=== PATIENT | female | born 1945 | race Caucasian/White ===

== ENCOUNTER 2018-07-22 09:14 | Emergency (ER) | payer OTHER ==
[~2018-07-22] VITALS: Ht 154.9 cm; Wt 78.9 kg
--- NOTE | 2018-07-22 10:47 | ED GI/GU/ABDOMINAL COMPLAINT ---
History of Present Illness General Chief Complaint: General Adult Stated Complaint: SIB DR. HOOKS FOR GALLBLADDER ATTACK Source: patient Exam Limitations: no limitations Vital Signs & Intake/Output Vital Signs & Intake/Output Vital Signs Date Time Temp Pulse Resp B/P B/P Pulse O2 O2 Flow FiO2 Mean Ox Delivery Rate 07/22 1131 85 20 180/90 99 Room Air 07/22 0926 98.3 87 18 180/85 98 Room Air Allergies Coded Allergies: No Known Allergies (07/22/18) Triage Note: 72 YO FEMALE TO TRIAGE FOR EVAL OF ?GALLBLADDER ATTACK PER PT. STATES SHE WAS TOLD SHE HAS STONES IN HER GALLBLADDER AND STATES "I WAS UP ALL NIGHT WITH THE PAIN" STATES PAIN IS RUQ. +VOMTIING THIS AM. DENIES DIARRHEA. Triage Nurses Notes Reviewed? yes ? n Is pt currently ? No HPI: 72-year-old female with a prior history of hypertension, hypothyroidism, hyperlipidemia, hiatal hernia and gallstones found on CT last year presents to the emergency department with abdominal pain located in the lower abdomen localizing to the right upper quadrant starting yesterday evening. She noted that she was eating lightly with solid tomatoes cucumbers and was feeling fine until dinnertime when she had macaroni and cheese she started to have some slight nausea and right upper quadrant pain. She denies any fevers or chills. She actually checked her temperature which was normal. She noted ongoing nausea and vomiting throughout the evening. No hematemesis. She called Dr. Hooks and he asked her to come to the emergency department for further evaluation for possible gallstone etiology. She was resting and that seemed to actually make her symptoms worse. Nothing seemed to help her symptoms. She presented to the emergency department now for further care. She denies any diarrhea or constipation. (Deena Rivera PA-C) Reconcile Medications No Known Home Medications (Mimi HERNÁNDEZ,[facility]) Past History Travel History Traveled to [place] past 21 day No Medical History Any Pertinent Medical History? none Cardiovascular: hypertension Endocrine: diabetes, hypothyroidism Surgical History Surgical History: left leg vein surgery Psychosocial History What is your primary language German Tobacco Use: Never used Family History Hx Contributory? Yes (Deena Rivera PA-C) Review of Systems Review of Systems Constitutional: Denies: no symptoms, see HPI. EENTM: Denies: no symptoms. Respiratory: Denies: no symptoms. Cardiovascular: Denies: no symptoms. GI: Reports: see HPI, abdominal pain, bloating, distention, nausea, vomiting. Genitourinary: Denies: no symptoms. Musculoskeletal: Denies: no symptoms. Skin: Denies: no symptoms. Neurological/Psychological: Denies: no symptoms. Hematologic/Endocrine: Denies: no symptoms. Immunologic/Allergic: Denies: no symptoms. All Other Systems: Reviewed and Negative (Deena Rivera PA-C) Physical Exam Physical Exam General Appearance: well developed/nourished, no apparent distress, alert, awake , comfortable Head: atraumatic, normal appearance Eyes: Bilateral: normal appearance, PERRL, EOMI. Neck: normal inspection, supple Respiratory: normal breath sounds, chest non-tender, no respiratory distress Cardiovascular: regular rate/rhythm, murmur, systolic murmur Gastrointestinal: normal bowel sounds, soft, tenderness (right upper quadrant) Extremities: normal range of motion Neurologic/Psych: awake, alert, oriented x 3 Skin: intact, normal color Core Measures ACS in differential dx? No Sepsis Present: No Sepsis Focused Exam Completed? No (Deena Rivera PA-C) Progress Differential Diagnosis: cholecystitis, choledocholithiasis Plan of Care: Orders Procedure Date/time Status LIPASE 07/22 1037 Complete COMPREHENSIVE METABOLIC PANEL 07/22 1037 Complete CBC WITHOUT DIFFERENTIAL 07/22 1037 Complete Laboratory Tests 07/22/18 1052: Anion Gap 11, Estimated GFR > 60, BUN/Creatinine Ratio 18.3, Glucose 250 H, Calcium 9.3, Total Bilirubin 0.5, AST 20, ALT 41, Alkaline Phosphatase 72, Total Protein 7.0, Albumin 4.6, Globulin 2.4, Albumin/Globulin Ratio 1.9, Lipase 111, CBC w Diff NO MAN DIFF REQ, RBC 3.84 L, MCV 91.2, MCH 31.8 H, MCHC 34.9, RDW 15.1 H, MPV 7.1 L, Gran % 92.4 H, Lymphocytes % 6.5 L, Monocytes % 0.8 L, Eosinophils % 0.1, Basophils % 0.2, Absolute Granulocytes 8.5 H, Absolute Lymphocytes 0.6 L, Absolute Monocytes 0.1, Absolute Eosinophils 0, Absolute Basophils 0 This time patient has denied any current nausea or pain unless palpated. IV fluids will be initiated. Antiemetic medication will be given if nausea returns. CBCs CMP and lipase are pending as well as abdominal ultrasound. US shows known cholelithiasis without cholecystitis. Recommend follow up with Dr. Hooks as outpt for outpatient cholecystectomy. Labs normal except for her blood sugar. Will need to follow up with her BS regimen. Discussed with patient. She missed all of her medications this am due to coming here. She wants to go home and take her BS and BP meds. Will recheck it at home later today. Initial ED EKG: none (Deena Rivera PA-C) Departure Departure Disposition: HOME OR SELF CARE Condition: Stable Clinical Impression Primary Impression: Cholelithiasis Referrals: José Miguel HERNÁNDEZ,Sudhakar Cabral (PCP/Family) Additional Instructions: Follow-up with Dr. Hooks outpatient for scheduled cholecystectomy. Watch diet with fatty foods. Continue to follow up with her primary care physician for blood pressure and blood sugar. We'll need to recheck her blood sugar and blood pressure this evening shortly after resuming her home medications. Patient is in agreement with this plan Departure Forms: Customer Survey General Discharge Information (Deena Rivera PA-C) Departure Prescriptions: Current Visit Scripts No Known Home Medications PA/GALLEY WORKER Co-Sign Statement Statement: ED Attending supervision documentation- [] I saw and evaluated the patient. I have also reviewed all the pertinent lab results and diagnostic results. I agree with the findings and the plan of care as documented in the PA's/GALLEY WORKER's documentation. [x] I have reviewed the ED Record and agree with the PA's/GALLEY WORKER's documentation. [] Additions or exceptions (if any) to the PAs/GALLEY WORKER's note and plan are summarized below: [] (Mimi HERNÁNDEZ,[facility])
[2018-07-22 11:00] LABS: ABSOLUTE BASOPHIL COUNT 0 /CUMM (0.0-0.2); ABSOLUTE EOSINOPHIL COUNT 0 /CUMM (0.0-0.7); ABSOLUTE GRANULOCYTE CT 8.5 /CUMM (1.4-6.5); ABSOLUTE LYMPH COUNT 0.6 /CUMM (1.2-3.4); ABSOLUTE MONOCYTE COUNT 0.1 /CUMM (0.10-0.60); BASOPHIL % 0.2 % (0.0-2.0); EOSINOPHIL % 0.1 % (0-5); MEAN CORPUSCULAR HGB 31.8 PG (27.0-31.0); MEAN CORPUSCULAR HGB CONC 34.9 G/DL (33.0-37.0); MEAN CORPUSCULAR VOLUME 91.2 FL (81.0-99.0); MEAN PLATELET VOLUME 7.1 FL (7.4-10.4); PLATELET COUNT 206 /CUMM (130-400); RBC DISTRIBUTION WIDTH 15.1 % (11.5-14.5); RED BLOOD CELL CT 3.84 /CUMM (4.20-5.40); WHITE BLOOD CELL COUNT 9.1 /CUMM (4.8-10.8)
[2018-07-22 11:32] LABS: GRANULOCYTE % 92.4 % (42.2-75.2)
--- NOTE | 2018-07-22 11:53 | ULTRASOUND REPORT ---
EXAMINATION: US ABDOMEN COMPLETE CLINICAL INFORMATION: Right upper quadrant pain. COMPARISON: Abdomen CT from 07/16/2015 TECHNIQUE: Real-time imaging of the abdominal viscera. FINDINGS: PANCREAS: Normal. ABDOMINAL AORTA: The proximal segment is normal in caliber. INFERIOR VENA CAVA: The visualized portions are normal. LIVER: Liver has normal size, contour and echotexture. No focal hepatic lesion or intrahepatic bile duct dilatation. GALLBLADDER: The gallbladder contains several calcified stones, largest 0.9 cm. No gallbladder wall edema or pericholecystic fluid. COMMON BILE DUCT: Normal in caliber measuring 0.4 cm in diameter. KIDNEYS: Normal size, cortical thickness and echotexture. The right kidney measures 10.6 cm and left kidney 9.6 cm length. No nephrolithiasis or hydronephrosis. SPLEEN: Normal. The spleen measures 10.5 cm in maximum dimension. FREE FLUID: None. IMPRESSION: - No acute findings within the examined abdomen compared to 07/16/2015. - Cholelithiasis without cholecystitis.
[2018-07-22 13:06] VITALS: BP 160/84
--- NOTE | 2018-07-22 15:11 | Cons- General Surgery ---
General Information and HPI Consulting Request Date of Consult: 07/22/18 Requested By: Emergency room History of Present Illness: Patient is known to me from previous encounters as outpatient for unrelated issues. She called me from home c/o acute onset of epigastric and RUQ abdominal pain that awakened her from sleep. There was nausea and vomiting. The pain did not radiate significantly. She ate meatballs and sauce for dinner then snacked on deep fried onions. This is the first episode of such pain. She has know gallstones which were previously felt to be asymptomatic. No ill contacts. No other issues in immediate household. Since ER evaluation she states the pain is much improved and nearly resolved. Allergies/Medications Allergies: Coded Allergies: No Known Allergies (07/22/18) Home Med List: No Known Home Medications Past History Medical History Cardiovascular: hypertension Endocrine: diabetes, hypothyroidism Surgical History Pertinent Surgical History: breast biopsy, hysterectomy, laminectomy, spinal fusion, left leg vein surgery Psychosocial History Smoking Status: Never Smoked ETOH Use: occasional use Illicit Drug Use: denies illicit drug use Review of Systems Review of Systems: No cp. no parsons, no dysuria. abd pain per hpi. remainder 12 points neg. Exam & Diagnostic Data Vital Signs and I&O Vital Signs Date Time Temp Pulse Resp B/P B/P Pulse O2 O2 Flow FiO2 Mean Ox Delivery Rate 07/22 1306 98.5 88 20 160/84 99 Room Air 07/22 1131 85 20 180/90 99 Room Air 07/22 0926 98.3 87 18 180/85 98 Room Air Intake & Output 07/22 1600 07/22 0800 07/22 0000 07/21 1600 07/21 0800 07/21 0000 Intake Total 0 Output Total Balance 0 Intake, Oral 0 Patient 174 lb Weight Weight Reported by Patient Measurement Method Physical Exam: Gen: looks well, age, overweight. no distress heent: anicteric, perrl, eomi, mmm chest, nt, normal excursion and effort, \ cor; rrr. no murmur abd; soft, tender epigastrum without guarding. no mccormick. ext; no c/c/e Last 24 Hours of Labs: Laboratory Tests 07/22 1052 Chemistry Sodium (137 - 145 mmol/L) 137 Potassium (3.5 - 5.1 mmol/L) 4.4 Chloride (98 - 107 mmol/L) 98 Carbon Dioxide (22 - 30 mmol/L) 28 Anion Gap (5 - 16) 11 BUN (7 - 17 mg/dL) 11 Creatinine (0.5 - 1.0 mg/dL) 0.6 Estimated GFR (>60 ml/min) > 60 BUN/Creatinine Ratio (7 - 25 %) 18.3 Glucose (65 - 99 mg/dL) 250 H Calcium (8.4 - 10.2 mg/dL) 9.3 Total Bilirubin (0.2 - 1.3 mg/dL) 0.5 AST (14 - 36 U/L) 20 ALT (9 - 52 U/L) 41 Alkaline Phosphatase (<127 U/L) 72 Total Protein (6.3 - 8.2 g/dL) 7.0 Albumin (3.5 - 5.0 g/dL) 4.6 Globulin (1.9 - 4.2 gm/dL) 2.4 Albumin/Globulin Ratio (1.1 - 2.2 %) 1.9 Lipase (23 - 300 U/L) 111 Hematology CBC w Diff NO MAN DIFF REQ WBC (4.8 - 10.8 /CUMM) 9.1 RBC (4.20 - 5.40 /CUMM) 3.84 L Hgb (12.0 - 16.0 G/DL) 12.2 Hct (37 - 47 %) 35.0 L MCV (81.0 - 99.0 FL) 91.2 MCH (27.0 - 31.0 PG) 31.8 H MCHC (33.0 - 37.0 G/DL) 34.9 RDW (11.5 - 14.5 %) 15.1 H Plt Count (130 - 400 /CUMM) 206 MPV (7.4 - 10.4 FL) 7.1 L Gran % (42.2 - 75.2 %) 92.4 H Lymphocytes % (20.5 - 51.1 %) 6.5 L Monocytes % (1.7 - 9.3 %) 0.8 L Eosinophils % (0 - 5 %) 0.1 Basophils % (0.0 - 2.0 %) 0.2 Absolute Granulocytes (1.4 - 6.5 /CUMM) 8.5 H Absolute Lymphocytes (1.2 - 3.4 /CUMM) 0.6 L Absolute Monocytes (0.10 - 0.60 /CUMM) 0.1 Absolute Eosinophils (0.0 - 0.7 /CUMM) 0 Absolute Basophils (0.0 - 0.2 /CUMM) 0 Imaging Results: Ultrasound RUQ shows gallstones without wall thickening or pericholecystic fluid. normal cbd Assessment/Plan Assessment/Plan Biliary colic, first episode. symptoms appear to be resolved now. I do not feel that emergent cholecystectomy is necessary. Patient will be arranged to undergo elective outpatient laparoscopic cholecystectomy. She will call to schedule. Patient informed of risks of surgery including bleeding, infection, conversion to open and post cholecystectomy diarrhea. She agrees. Consult Acknowledgment - Thank you for your consult request.
== END 2018-07-22 13:40 ==
LOC: ERH 09:14
PROVIDERS: Physician Assistant Medical
DX: K80.20 Calculus of gallbladder without cholecystitis without obstruction (principal); I10 Essential (primary) hypertension; E11.9 Type 2 diabetes mellitus without complications; E03.9 Hypothyroidism, unspecified